=== PATIENT | female | born 1960 | race American Indian/Alaskan Native ===

== ENCOUNTER 2017-06-20 20:09 | Emergency (ER) | payer OTHER ==
[2017-06-20 20:32] VITALS: TEMP 98.1
--- NOTE | 2017-06-20 21:03 | ED PDOC ---
Arrival/HPI - General Historian: Patient EM Caveat: Acuity of Condition - History of Present Illness Time/Duration: Prior to Arrival, 1 hour Symptom Onset: Gradual Symptom Course: Unchanged Quality: Aching Severity Level: 1 Activities at Onset: Rest, Light Context: Standing <Paige Garibay - Last Filed: 06/21/17 00:06> <ErlinPricilla Cartwright - Last Filed: 06/21/17 05:48> - General Chief Complaint: High Blood Pressure Time Seen by Provider: 06/20/17 20:27 - History of Present Illness Narrative History of Present Illness (Text): 06/20/17 21:17 56 years old female with PMH HTN (diagnosed a week ago), 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 Pt went to her [employer] office today, where her SBP was high in 180s. Pt recently was diagnosed with HTN by her PMD Dr Lindsey and started on Losartan-HCTZ 50-12.5 mg since last Tuesday. Pt has been compliant with her medication. She denies any headache, dizziness, vision changes, sob, cough, abdominal pain, diarrhea, constipation, urinary symptoms, weakness. PMD Dr Lindsey (Paige Garibay) Associated Symptoms (Text): 06/20/17 21:24 Denies any headache, dizziness, vision changes, sob, cough, abdominal pain, diarrhea, constipation, urinary symptoms, weakness. (Paige Garibay) Past Medical History - Provider Review Nursing Documentation Reviewed: Yes - Cardiac Hx Hypertension: Yes - Pulmonary Hx Respiratory Disorders: No - Neurological Hx Neurological Disorder: No - HEENT Hx HEENT Disorder: No - Renal Hx Renal Disorder: No - Endocrine/Metabolic Hx Endocrine Disorders: No - Hematological/Oncological Hx Blood Disorders: No - Integumentary Hx Dermatological Disorder: No - Musculoskeletal/Rheumatological Hx Musculoskeletal Disorders: No - Gastrointestinal Hx Gastrointestinal Disorders: No - Genitourinary/Gynecological Hx Genitourinary Disorders: No - Psychiatric Hx Psychophysiologic Disorder: No Hx Substance Use: No <Paige Garibay - Last Filed: 06/21/17 00:06> Family/Social History - Physician Review Nursing Documentation Reviewed: Yes Family/Social History: Hypertension Smoking Status: Never Smoked Hx Alcohol Use: No Hx Substance Use: No <Paige Garibay - Last Filed: 06/21/17 00:06> Allergies/Home Meds <LaniPaige - Last Filed: 06/21/17 00:06> <Pricilla Kern - Last Filed: 06/21/17 05:48> Allergies/Adverse Reactions: Allergies No Known Allergies Allergy (Verified 06/20/17 20:25) Home Medications: Home Meds Medication Instructions Recorded Confirmed Losartan/Hydrochlorothiazide 1 tab PO DAILY 06/20/17 06/20/17 [Losartan-Hctz 50-12.5 mg Tab] Review of Systems - Review of Systems Constitutional: absent: Fatigue, Fevers Eyes: absent: Vision Changes ENT: absent: Hearing Changes, Tinnitus Respiratory: absent: SOB, Cough Cardiovascular: absent: Chest Pain, Palpitations, Edema Gastrointestinal: absent: Abdominal Pain, Constipation, Diarrhea, Nausea, Vomiting Genitourinary Female: absent: Dysuria, Hematuria Musculoskeletal: absent: Back Pain Skin: absent: Rash Neurological: absent: Headache, Dizziness, Focal Weakness Endocrine: absent: Diaphoresis Psychiatric: Anxiety <LaniPaige - Last Filed: 06/21/17 00:06> Physical Exam Vital Signs Reviewed: Yes Temperature: Afebrile Blood Pressure: Hypertensive Pulse: Regular Respiratory Rate: Normal Appearance: Positive for: Non-Toxic, Comfortable Pain Distress: None Mental Status: Positive for: Alert and Oriented X 3 - Systems Exam Head: Present: Atraumatic, Normocephalic Pupils: Present: PERRL Extroacular Muscles: Present: EOMI Conjunctiva: Present: Normal Mouth: Present: Moist Mucous Membranes Pharnyx: No: ERYTHEMA Respiratory/Chest: Present: Clear to Auscultation Cardiovascular: Present: Normal S1, S2, Tachycardic. No: Murmurs Abdomen: Present: Normal Bowel Sounds. No: Tenderness, Distention Upper Extremity: Present: NORMAL PULSES. No: Edema Lower Extremity: No: Edema, CALF TENDERNESS Neurological: Present: GCS=15, Speech Normal Skin: Present: Warm, Dry Psychiatric: Present: Alert, Oriented x 3, Anxious <LaniPaige - Last Filed: 06/21/17 00:06> Vital Signs Temp Pulse Resp BP Pulse Ox 06/20/17 23:41 78 17 159/87 H 100 06/20/17 23:16 62 169/99 H 06/20/17 22:32 95 H 190/111 H 06/20/17 22:00 89 18 196/105 H 99 06/20/17 21:15 94 H 190/109 H 06/20/17 20:26 98.1 F 96 H 16 181/116 H 96 Medical Decision Making <Paige Garibay - Last Filed: 06/21/17 00:06> <Pricilla Kern - Last Filed: 06/21/17 05:48> ED Course and Treatment: 06/20/17 21:14 56 years old female with PMH HTN, presents for asymptomatic high blood pressure: - Lopressor 25 mg PO x1 - Reassess and dispo - F/u with PMD 06/21/17 00:06 Lopressor 5 mg Iv x2 given. BP better controlled. Will discharge on Metoprolol 25 mg PO BID. Pt instructed to take home HTN med Losartan-HCTZ and Metoprolol. Please follow up with PMD within 2-3 days. (Paige Garibay) Patient Seen With Resident: In agreement with resident note. Patient was seen and evaluated with resident, came up with plan and treatment together. A 56 year old female with high blood pressure. Additional HPI as noted by resident. No acute findings on physical exam. Will give patient Lopressor. (Pricilla Kern) - EKG Interpretation EKG Interpretation (Text): 06/20/17 21:45 EKG HR 86.; SR (Paige Garibay) - Medication Orders Current Medication Orders: Discontinued Medications Metoprolol Tartrate (Lopressor) 25 mg PO STAT STA Stop: 06/20/17 21:00 Last Admin: 06/20/17 21:15 Dose: 25 mg MAR Pulse and Blood Pressure Document 06/20/17 21:15 RD (Rec: 06/20/17 21:15 RD [id number]) Pulse Pulse Rate (60-90) 94 Blood Pressure Blood Pressure (100/60-150/90) 190/109 Metoprolol Tartrate (Lopressor) 5 mg IVP STAT STA Stop: 06/20/17 22:04 Last Admin: 06/20/17 22:32 Dose: 5 mg IVP Administration Document 06/20/17 22:32 RD (Rec: 06/20/17 22:32 RD [id number]) Charges for Administration # of IVP Administrations 1 OCT Pulse and Blood Pressure Document 06/20/17 22:32 RD (Rec: 06/20/17 22:32 RD [id number]) Pulse Pulse Rate (60-90) 95 Blood Pressure Blood Pressure (100/60-150/90) 190/111 Metoprolol Tartrate (Lopressor) 5 mg IVP STAT STA Stop: 06/20/17 22:55 Last Admin: 06/20/17 23:16 Dose: 5 mg IVP Administration Document 06/20/17 23:16 RD (Rec: 06/20/17 23:17 RD [id number]) Charges for Administration # of IVP Administrations 1 OCT Pulse and Blood Pressure Document 06/20/17 23:16 RD (Rec: 06/20/17 23:17 RD [id number]) Pulse Pulse Rate (60-90) 62 Blood Pressure Blood Pressure (100/60-150/90) 169/99 - PA / BODY AND FRAME MAN / Resident Statement MD/DO has reviewed & agrees with the documentation as recorded. MD/DO has examined the patient and agrees with the treatment plan. <Paige Garibay - Last Filed: 06/21/17 00:06> - Scribe Statement The provider has reviewed the documentation as recorded by the Scribe <Pricilla Kern - Last Filed: 06/21/17 05:48> - Scribe Statement Jefferson Loco All medical record entries made by the Scribe were at my direction and personally dictated by me. I have reviewed the chart and agree that the record accurately reflects my personal performance of the history, physical exam, medical decision making, and the department course for this patient. I have also personally directed, reviewed, and agree with the discharge instructions and disposition. (Pricilla Kern) Disposition/Present on Arrival - Present on Arrival Any Indicators Present on Arrival: No History of DVT/PE: No History of Uncontrolled Diabetes: No Urinary Catheter: No History of Decub. Ulcer: No History Surgical Site Infection Following: None - Disposition Have Diagnosis and Disposition been Completed?: Yes Patient Plan: Discharge <Paige Garibay - Last Filed: 06/21/17 00:06> - Disposition Have Diagnosis and Disposition been Completed?: Yes Disposition Time: 23:21 Patient Plan: Discharge <Pricilla Kern - Last Filed: 06/21/17 05:48> - Disposition Diagnosis: Hypertension Disposition: HOME/ ROUTINE Condition: FAIR Discharge Instructions (ExitCare): Hypertension (ED) Additional Instructions: - Please take Metoprolol 25 mg PO BID and losartan-hctz for HTN. - Please follow up with PMD within 2-3 days. - Return to the ER for any concerns. Prescriptions: Metoprolol Tartrate [Lopressor] 25 mg PO BID #20 tab Referrals: Coy Lindsey DO [Primary Care Provider] - Follow up with primary Forms: [employer] (Bulgarian)
[2017-06-20] MEDS ORDERED: Metoprolol 1 mg/ml Inj IVP STA ×2 (22:03→22:54)
[2017-06-20 23:43] VITALS: BP 159/87; PULSE 78; RESP 17; O2SAT 100
--- NOTE | 2017-06-21 22:23 | CARD ---
APPROVED REPORT EKG Measurement Heart [id number] <Conclusion> Sinus rhythm with marked sinus arrhythmia Otherwise normal ECG
== END 2017-06-20 23:41 | disposition home or self-care (01) ==
LOC: ED 20:09
DX: I10 Essential (primary) hypertension (principal); Z82.49 Family history of ischemic heart disease and other diseases of the circulatory system

== ENCOUNTER 2018-10-10 10:18 | Emergency (ER) | payer OTHER ==
[2018-10-10 10:25] VITALS: O2SAT 97
--- NOTE | 2018-10-10 11:03 | ED PDOC ---
Arrival/HPI - General Chief Complaint: Lower Extremity Problem/Injury Time Seen by Provider: 10/10/18 10:29 Historian: Patient - History of Present Illness Narrative History of Present Illness (Text): 10/10/18 11:02 58 year old female, whose past medical history includes hypertension, presents to the emergency department complaining of pain to her right leg, hip, arm, and shoulder s/p fall. Patient states she slipped on ice this morning and fell on her right side. She denies fevers, chills, headache, dizziness, chest pain, shortness of breath, dyspnea on exertion, cough, abdominal pain, nausea, vomiting, diarrhea, neck pain, or any other complaint. Time/Duration: Prior to Arrival Symptom Onset: Gradual Symptom Course: Unchanged Activities at Onset: Light Context: Slipped Past Medical History - Provider Review Nursing Documentation Reviewed: Yes - Cardiac Hx Cardiac Disorders: Yes Hx Hypertension: Yes - Pulmonary Hx Respiratory Disorders: No - Neurological Hx Neurological Disorder: No - HEENT Hx HEENT Disorder: No - Renal Hx Renal Disorder: No - Endocrine/Metabolic Hx Endocrine Disorders: No - Hematological/Oncological Hx Blood Disorders: No - Integumentary Hx Dermatological Disorder: No - Musculoskeletal/Rheumatological Hx Musculoskeletal Disorders: No - Gastrointestinal Hx Gastrointestinal Disorders: No - Genitourinary/Gynecological Hx Genitourinary Disorders: No - Psychiatric Hx Psychophysiologic Disorder: No Hx Substance Use: No Family/Social History - Physician Review Nursing Documentation Reviewed: Yes Family/Social History: No Known Family HX Smoking Status: Never Smoked Hx Alcohol Use: No Hx Substance Use: No Allergies/Home Meds Allergies/Adverse Reactions: Allergies No Known Allergies Allergy (Verified 10/10/18 10:20) Home Medications: Home Meds Medication Instructions Recorded Confirmed Losartan/Hydrochlorothiazide 1 tab PO DAILY 06/20/17 10/10/18 [Losartan-Hctz 50-12.5 mg Tab] Metoprolol Tartrate [Lopressor] 50 mg PO BID 10/10/18 10/10/18 Review of Systems - Physician Review All systems were reviewed & negative as marked: Yes - Review of Systems Constitutional: absent: Fevers Cardiovascular: absent: Chest Pain Physical Exam - Physical Exam Narrative Physical Exam (Text): 10/10/18 11:02 Constitutional: No acute distress. Head: Normocephalic. Atraumatic. Eyes: PERRL. ENT: Moist mucous membranes. Neck: Supple. Cardiovascular: Regular rate. Chest: No tenderness. Respiratory: Clear to auscultation bilaterally. GI: Soft. Nontender. Nondistended. Back: No CVA tenderness. Musculoskeletal: tenderness to posterior shoulder, tenderness to the right hip, no tenderness to the knee, full ROM of right knee, full ROM of elbow and wrist, no tenderness to clavicle or AC joint, Skin: No rash. Neurologic: Alert, no focal deficit. Vital Signs Reviewed: Yes Vital Signs Temp Pulse Resp BP Pulse Ox 10/10/18 10:21 98.3 F 94 H 16 153/95 H 97 10/10/18 10:18 98.3 F 94 H 16 153/95 H 97 Temperature: Afebrile Blood Pressure: Hypertensive Pulse: Tachycardic Respiratory Rate: Normal Appearance: Positive for: Well-Appearing, Non-Toxic, Comfortable Pain Distress: None Mental Status: Positive for: Alert and Oriented X 3 Medical Decision Making ED Course and Treatment: 10/10/18 11:02 Impression: 58 year old female who presents to the emergency department complaining of pain to right shoulder, arm, hip, and leg. Plan: -- Motrin -- Right hip X-ray -- Right shoulder X-ray -- Reassess and disposition Progress Notes: 10/10/18 12:14 Right hip X-ray reviewed by radiologist, shows: IMPRESSION: Normal radiographs of right hip. Right shoulder X-ray reviewed by radiologist, shows: IMPRESSION: Minimal acromioclavicular degenerative arthritis. Otherwise unremarkable examination. Patient in no distress. Discharged home, follow up pmd, return to emergency department for worsening pain, vomiting, lethargy, abdominal pain, or any other problem. - RAD Interpretation Radiology Orders: 10/10/18 11:01 HIP MIN 2V W/ PELVIS RT [RAD] Stat SHOULDER RIGHT [RAD] Stat Spinner Continuous: Radiologist - Scribe Statement The provider has reviewed the documentation as recorded by the Yaneth Rosales Provider Scribe Attestation: All medical record entries made by the Scribe were at my direction and personal ly dictated by me. I have reviewed the chart and agree that the record accurately reflects my personal performance of the history, physical exam, medical decision making, and the department course for this patient. I have also personally directed, reviewed, and agree with the discharge instructions and disposition. Disposition/Present on Arrival - Present on Arrival Any Indicators Present on Arrival: No History of DVT/PE: No History of Uncontrolled Diabetes: No Urinary Catheter: No History of Decub. Ulcer: No History Surgical Site Infection Following: None - Disposition Have Diagnosis and Disposition been Completed?: Yes Diagnosis: Shoulder pain, Hip pain Disposition: HOME/ ROUTINE Disposition Time: 12:36 Patient Plan: Discharge Condition: STABLE Discharge Instructions (ExitCare): Shoulder Pain (DC), Hip Pain (DC) Prescriptions: Acetaminophen [Tylenol 325mg tab] 2 tab PO Q4H #30 tab Ibuprofen [Motrin] 600 mg PO Q6 #25 tab Forms: [employer] (Welsh)
--- NOTE | 2018-10-10 11:54 | RAD ---
Date of service: 10/10/2018 PROCEDURE: Radiographs of the Right Shoulder HISTORY: fall, shoulder pain COMPARISON: No prior. FINDINGS: BONES: Normal. No fracture. JOINTS: Unremarkable glenohumeral articulation. Minimal acromioclavicular degenerative arthritis. SOFT TISSUES: Normal. OTHER FINDINGS: None. IMPRESSION: Minimal acromioclavicular degenerative arthritis. Otherwise unremarkable examination.
--- NOTE | 2018-10-10 12:03 | RAD ---
PROCEDURE: Right Hip Radiographs. HISTORY: hip pain, fall COMPARISON: None. FINDINGS: BONES: Normal. No fracture. JOINTS: Normal. SOFT TISSUES: Normal. OTHER FINDINGS: None. IMPRESSION: Normal radiographs of right hip.
[2018-10-10 12:54] VITALS: BP 134/79; PULSE 84; RESP 18; TEMP 98
== END 2018-10-10 12:46 | disposition home or self-care (01) ==
LOC: ED 10:18
DX: M25.511 Pain in right shoulder (principal); M25.551 Pain in right hip; I10 Essential (primary) hypertension

== ENCOUNTER 2018-12-10 23:22 | Observation (INO) | payer OTHER ==
--- NOTE | 2018-12-11 00:27 | ED PDOC ---
Arrival/HPI - General Historian: Patient - History of Present Illness Narrative History of Present Illness (Text): 12/11/18 00:24 58yr old female with a hx of HTN presents today with sudden onset of mid left sided back pain. pt states she has been having chest pain, and back pain and about 1 hour prior to arrival she developed severe back pain associated with slight chest pain. no shortness of breath. no numbness, weakness, tingling in the extremities. no dizziness. no headache. pt states she has hx of htn and her blood pressure was high today despite taking her bp mediations. pt states after the pain started she took an advil with slight improvement in the pain. no urina ry symptoms. pt states PMD is dr. Rowley. no abdominal pain. no vomiting/diarrhea. no other complaints. <Phuong Minaya - Last Filed: 12/11/18 01:39> <Berto Gutiérrez - Last Filed: 12/11/18 06:15> - General Chief Complaint: Back Pain Time Seen by Provider: 12/10/18 23:23 Past Medical History - Provider Review Nursing Documentation Reviewed: Yes - Travel History Have you recently traveled outside [place] w/in the past 3 mons?: No - Cardiac Hx Cardiac Disorders: Yes Hx Hypertension: Yes - Pulmonary Hx Respiratory Disorders: No - Neurological Hx Neurological Disorder: No - HEENT Hx HEENT Disorder: No - Renal Hx Renal Disorder: No - Endocrine/Metabolic Hx Endocrine Disorders: No - Hematological/Oncological Hx Blood Disorders: No - Integumentary Hx Dermatological Disorder: No - Musculoskeletal/Rheumatological Hx Musculoskeletal Disorders: No - Gastrointestinal Hx Gastrointestinal Disorders: No - Genitourinary/Gynecological Hx Genitourinary Disorders: No - Psychiatric Hx Psychophysiologic Disorder: No Hx Substance Use: No <Phuong Minaya - Last Filed: 12/11/18 01:39> Family/Social History - Physician Review Nursing Documentation Reviewed: Yes Family/Social History: Unknown Family HX Smoking Status: Never Smoked Hx Alcohol Use: No Hx Substance Use: No <Phuong Minaya - Last Filed: 12/11/18 01:39> Allergies/Home Meds <Phuong Minaya - Last Filed: 12/11/18 01:39> <Berto Gutiérrez - Last Filed: 12/11/18 06:15> Allergies/Adverse Reactions: Allergies No Known Allergies Allergy (Verified 10/10/18 10:20) Home Medications: Home Meds Medication Instructions Recorded Confirmed Losartan/Hydrochlorothiazide 1 tab PO DAILY 06/20/17 12/11/18 [Losartan-Hctz 50-12.5 mg Tab] Metoprolol Tartrate [Lopressor] 50 mg PO BID 10/10/18 12/11/18 Review of Systems - Review of Systems Constitutional: absent: Fatigue, Fevers Respiratory: absent: SOB, Cough Cardiovascular: Chest Pain, Palpitations Gastrointestinal: absent: Abdominal Pain, Constipation, Diarrhea, Nausea, Vomiting Genitourinary Female: absent: Dysuria, Frequency, Hematuria Musculoskeletal: Arthralgias (right arm pain), Back Pain. absent: Neck Pain Skin: absent: Rash, Pruritis Neurological: absent: Headache, Dizziness Psychiatric: absent: Anxiety, Depression <Phuong Minaya T - Last Filed: 12/11/18 01:39> Physical Exam Vital Signs Reviewed: Yes Vital Signs Temp Pulse Resp BP Pulse Ox 12/10/18 23:42 98.2 F 91 H 22 201/115 H 98 Temperature: Afebrile Blood Pressure: Hypertensive Pulse: Regular Respiratory Rate: Normal Appearance: Positive for: Well-Appearing, Non-Toxic, Comfortable Pain Distress: None Mental Status: Positive for: Alert and Oriented X 3 - Systems Exam Head: Present: Atraumatic Mouth: Present: Moist Mucous Membranes Neck: Present: Normal Range of Motion Respiratory/Chest: Present: Clear to Auscultation, Good Air Exchange. No: Respiratory Distress, Accessory Muscle Use Cardiovascular: Present: Regular Rate and Rhythm, Normal S1, S2. No: Murmurs Abdomen: No: Tenderness, Distention, Peritoneal Signs, Rebound, Guarding Back: Present: Normal Inspection. No: CVA Tenderness, Midline Tenderness, Paraspinal Tenderness Upper Extremity: Present: Normal ROM Lower Extremity: Present: Edema, Normal ROM Neurological: Present: GCS=15, Speech Normal Skin: Present: Warm, Dry, Normal Color. No: Rashes Psychiatric: Present: Alert, Oriented x 3 <Phuong Minaya T - Last Filed: 12/11/18 01:39> Vital Signs Temp Pulse Resp BP Pulse Ox 12/11/18 03:22 97.7 F 89 19 154/93 H 98 12/11/18 02:31 89 18 137/87 95 12/11/18 00:26 91 H 180/118 H 12/10/18 23:42 98.2 F 91 H 22 201/115 H 98 <Berto Gutiérrez - Last Filed: 12/11/18 06:15> Medical Decision Making ED Course and Treatment: 12/11/18 00:28 Pt with back pain and chest pain; patient with a history of hypertension. Hypertensive on initial vitals. pt given hydralazine for hypertension. cbc; wnl cmp; wnl trop: wnl Bnp; wnl ekg; normal sinus rhythm at 88 bpm normal axis no ST elevations QTC 450 cxr: wnl asa po pt reassessment; pt resting comfortably in er. case discussed with Dr. Rowley; accepts admission. will Admit observational status to Tele for chest pain, back pain r/o acs. Consult dr. hanna. CT Dissection protocol; PENDING All aspects of this case were discussed the attending of record. impression; chest pain, back pain Admit observational status to tele 12/11/18 01:39 case signed out to dr. gutiérrez pending CT results. Reassessment Condition: Re-examined, Improved - RAD Interpretation Radiology Orders: 12/10/18 23:55 CHEST PORTABLE [RAD] Stat 12/10/18 23:56 ANGIOGRAPHY DISECTION PROTOCOL [CT] Stat - Medication Orders Current Medication Orders: Discontinued Medications Hydralazine HCl (Apresoline) 10 mg IVP STAT STA Stop: 12/11/18 00:16 <Phuong Minaya - Last Filed: 12/11/18 01:39> - Lab Interpretations Lab Results: PT 12.6 SECONDS (9.4-12.5) H 12/11/18 00:05 INR 1.14 12/11/18 00:05 APTT 31.8 Seconds (26.9-38.3) 12/11/18 00:05 Troponin I < 0.01 ng/mL 12/11/18 00:05 NT-Pro-B Natriuret Pep 21.3 pg/mL (0-450) 12/11/18 00:05 Total Bilirubin 0.3 mg/dL (0.2-1.3) 12/11/18 00:05 AST 24 U/L (14-36) 12/11/18 00:05 ALT 19 U/L (7-56) 12/11/18 00:05 Alkaline Phosphatase 148 U/L (38-126) H 12/11/18 00:05 Total Protein 7.8 g/dL (5.8-8.3) 12/11/18 00:05 Albumin 4.5 g/dL (3.0-4.8) 12/11/18 00:05 Globulin 3.3 gm/dL 12/11/18 00:05 Albumin/Globulin Ratio 1.4 (1.1-1.8) 12/11/18 00:05 - RAD Interpretation Narrative RAD Interpretations (Text): CT Chest, Abdomen, and Pelvis: Normal enhancement of the main pulmonary artery and right and left pulmonary arteries. Normal enhancement of the bilateral peripheral pulmonary arteries. There is no demonstrated pulmonary embolism. Normal thoracic aorta and visualized great vessels. There is no demonstrated aortic dissection. Normal heart and pericardium. Normal mediastinum. Normal hilar regions. Normal visualized trachea and bronchi. The lungs are well expanded. Normal pulmonary parenchyma. Normal pleura. Normal chest wall structures. Normal osseous structures. Normal liver. Normal gallbladder and extrahepatic biliary system. Normal spleen. Normal pancreas. Normal bilateral adrenal glands. Normal size of the right kidney. There is no right renal mass. There are no right renal calculi. There is no right hydronephrosis. Normal visualized right ureter. Normal size of the left kidney. There is no left renal mass. There are no left renal calculi. There is no left hydronephrosis. Normal visualized left ureter. Normal visualized stomach. Normal small intestine. Uncomplicated diverticulosis with moderate amount of fecal residue in the colon. The appendix is visualized and appears normal. There is no demonstrated peritoneal fluid. Normal abdominal aorta. Normal inferior vena cava. Normal retroperitoneum. Normal urinary bladder. There is no pelvic mass lesion or lymphadenopathy. There is no pelvic fluid. Normal abdominal wall. Normal osseous structures. IMPRESSION: No demonstrated pulmonary embolism or arterial dissection. Constipation. Electronically signed on December 11, 2018 3:16:21 AM EDT by: Mariah Moran M.D., Certified by ABR, MSK, Neuroradiology Radiology Orders: 12/10/18 23:55 CHEST PORTABLE [RAD] Stat 12/10/18 23:56 ANGIOGRAPHY DISECTION PROTOCOL [CT] Stat Patient Carrier: Radiologist - Medication Orders Current Medication Orders: Discontinued Medications Aspirin (Aspirin) 325 mg PO STAT STA Stop: 12/11/18 01:37 Last Admin: 12/11/18 02:28 Dose: 325 mg Hydralazine HCl (Apresoline) 10 mg IVP STAT STA Stop: 12/11/18 00:16 Last Admin: 12/11/18 00:26 Dose: 10 mg IVP Administration Document 12/11/18 00:26 HB (Rec: 12/11/18 00:29 [id number] Charges for Administration # of IVP Administrations 1 MAR Pulse and Blood Pressure Document 12/11/18 00:26 HB (Rec: 12/11/18 00:29 HB [id number]) Pulse Pulse Rate (60-90 beats/min) 91 Blood Pressure Blood Pressure (100/60-150/90 mm Hg) 180/118 <Berto Gutiérrez - Last Filed: 12/11/18 06:15> - PA / WEAVING PROFESSOR / Resident Statement ALIYA has reviewed & agrees with the documentation as recorded. ALIYA has examined the patient and agrees with the treatment plan. <Berto Gutiérrez - Last Filed: 12/11/18 06:15> Disposition/Present on Arrival - Present on Arrival Any Indicators Present on Arrival: No History of DVT/PE: No History of Uncontrolled Diabetes: No Urinary Catheter: No History of Decub. Ulcer: No History Surgical Site Infection Following: None - Disposition Have Diagnosis and Disposition been Completed?: Yes Disposition Time: 01:00 Patient Plan: Observation <Phuong Minaya - Last Filed: 12/11/18 01:39> <Berto Gutiérrez - Last Filed: 12/11/18 06:15> - Disposition Diagnosis: Chest pain, Back pain, Hypertension Disposition: HOSPITALIZED Patient Problems: Current Active Problems Problem Status Onset Back pain Acute Chest pain Acute Hypertension Acute Condition: FAIR
[2018-12-11 01:03] LABS: BASO # 0.02 K/mm3 (0.0-2.0); BASO % 0.2 % (0.0-3.0); EOS # 0.3 (0.0-0.7); EOS % 2.6 % (1.5-5.0); HEMOGLOBIN 13.4 g/dL (12.0-16.0); LYMPH # 3.8 (1.2-3.4); LYMPH % 39.1 % (22.0-35.0); MEAN CELL VOLUME 88.7 fl (80.0-105.0); MEAN CORPUSCULAR HEMOGLOBIN 29.8 pg (25.0-35.0); MEAN CORPUSCULAR HGB CONC 33.6 g/dl (31.0-37.0); MEAN PLATELET VOLUME 10.5 fl (7.0-11.0); MONO # 0.8 (0.1-0.6); MONO % 8.2 % (1.0-6.0); RBC 4.5 10^6/uL (3.5-6.1); RED CELL DISTRIBUTION WIDTH 13.5 % (11.5-14.5); WHITE BLOOD COUNT 9.7 10^3/uL (4.5-11.0)
[2018-12-11 01:12] LABS: ALB/GLOB RATIO 1.4 (1.1-1.8); ALBUMIN 4.5 g/dL (3.0-4.8); ALT/SGPT 19 U/L (7-56); AST/SGOT 24 U/L (14-36); BLOOD UREA NITROGEN 16 mg/dL (7-21); CALCIUM 9.6 mg/dL (8.4-10.5); GFR NON-AFRICAN AMERICAN 57; INR 1.14; PARTIAL THROMBOPLASTIN TIME 31.8 Seconds (26.9-38.3); PROTHROMBIN TIME 12.6 SECONDS (9.4-12.5)
[2018-12-11 01:23] LABS: B-TYPE NATRIURETIC PEPTIDE 21.3 pg/mL (0-450); TROPONIN I < 0.01 ng/mL
[2018-12-11 03:35] VITALS: BMI 34.9
[2018-12-11 07:32] LABS: PH,URINE 6.5 (4.7-8.0); URINE BILIRUBIN NEGATIVE (NEGATIVE); URINE BLOOD LARGE (NEGATIVE); URINE GLUCOSE (UA) NEGATIVE (NEGATIVE); URINE LEUKOCYTE ESTERASE NEGATIVE Leu/uL (NEGATIVE); URINE PROTEIN TRACE mg/dL (<30 mg/dL)
[2018-12-11 07:40] LABS: URINE APPEARANCE CLEAR (CLEAR); URINE COLOR YELLOW (YELLOW)
[2018-12-11 07:50] LABS: URINE RBC TNTC /hpf (0-2)
[2018-12-11 07:51] LABS: URINE AMORPHOUS SEDIMENT FEW /hpf; URINE BACTERIA MOD /hpf
--- NOTE | 2018-12-11 09:05 | RAD ---
Date of service: 12/11/2018 HISTORY: CP/back pain COMPARISON: No prior. TECHNIQUE: 1 view obtained. FINDINGS: LUNGS: No active pulmonary disease. PLEURA: No significant pleural effusion identified, no pneumothorax apparent. CARDIOVASCULAR: No aortic atherosclerotic calcification present. Normal cardiac size. No pulmonary vascular congestion. OSSEOUS STRUCTURES: No significant abnormalities. VISUALIZED UPPER ABDOMEN: Normal. OTHER FINDINGS: None. IMPRESSION: No active disease.
[2018-12-11] MEDS ORDERED: Non Formulary Medication (Losartan/Hydrochlorothiazide [Losartan-Hctz 50-12.5 Mg Tab] 1 TA PO SCH (10:00)
--- NOTE | 2018-12-11 11:09 | CT ---
PROCEDURE: CT Angiography Chest, Abdomen and Pelvis with and without intravenous contrast HISTORY: back pain/chest pain COMPARISON: None. TECHNIQUE: Contiguous axial images of the chest, abdomen and pelvis were obtained in the phase of aortic enhancement. A noncontrast enhanced CT of the chest was also obtained to evaluate for possible intramural thrombus. Coronal and sagittal reformats were generated. IV dose administered: 150 mL Omnipaque 350 Radiation dose: Total exam DLP = 973.26 mGy-cm. This CT exam was performed using one or more of the following dose reduction techniques: Automated exposure control, adjustment of the mA and/or kV according to patient size, and/or use of iterative reconstruction technique. FINDINGS: CT ANGIOGRAPHY OF THE CHEST WITH & WITHOUT CONTRAST: AORTA (CHEST AND ABDOMEN): The thoracic and abdominal aorta are unremarkable, without aneurysm, dissection or rupture. No intramural thrombus identified in the thoracic aorta on the non-contrast ct of the chest. The celiac axis, superior mesenteric artery, inferior mesenteric artery and the renal arteries are widely patent. The pelvic arteries are unremarkable. LUNGS: Clear. No nodule, mass or consolidation. MEDIASTINUM: Unremarkable. Normal caliber aorta and pulmonary arterial trunk. No aortic dissection. Normal size heart. LYMPH NODES: Unremarkable. PLEURA: Unremarkable. No pneumothorax. No pleural fluid. BONES: Unremarkable. OTHER FINDINGS: None. CT ANGIOGRAPHY OF THE ABDOMEN AND PELVIS WITH CONTRAST: LIVER: Unremarkable. No gross lesion or ductal dilatation. GALLBLADDER AND BILE DUCTS: Unremarkable. PANCREAS: Unremarkable. No gross lesion or ductal dilatation. SPLEEN: Unremarkable. ADRENALS: Unremarkable. No mass. KIDNEYS AND URETERS: Unremarkable. No hydronephrosis. No solid mass. VASCULATURE: Unremarkable. No aortic aneurysm. No aortic atherosclerotic calcification or mural plaque present. STOMACH AND BOWEL: Unremarkable. No obstruction. No gross mural thickening. APPENDIX: Normal appendix. PERITONEUM: Unremarkable. No free fluid. No free air. LYMPH NODES: Unremarkable. No enlarged lymph nodes. BLADDER: Unremarkable. REPRODUCTIVE: Unremarkable. BONES: No acute fracture. OTHER FINDINGS: None. IMPRESSION: No evidence of thoracic or abdominal aortic aneurysm or dissection. Unremarkable examination. The preliminary findings for this examination were reported by [facility] Radiology at 3:16 a.m. on 12/11/2018. There is concurrence of this report with the preliminary findings.
--- NOTE | 2018-12-11 11:09 | CARD ---
APPROVED REPORT Date of service: 12/11/2018 EKG Measurement Heart [id number] <Conclusion> Normal sinus rhythm Normal ECG
--- NOTE | 2018-12-11 15:15 | US ---
Date of service: 12/11/2018 HISTORY: hematuria COMPARISON: None. TECHNIQUE: Sonographic evaluation of the abdomen. FINDINGS: LIVER: Measures 14.3 cm. Normal echogenicity of the liver parenchyma. No mass. No intrahepatic bile duct dilatation. GALLBLADDER: Unremarkable. No gallstones. COMMON BILE DUCT: Measures 4 mm. No stones. No dilatation. PANCREAS: Unremarkable as visualized. No mass. No ductal dilatation. RIGHT KIDNEY: Measures 11.2cm. Normal echogenicity. There are 2 nonobstructing calculi measuring approximately 4-5 mm each. There is no hydronephrosis. There is no renal mass. LEFT KIDNEY: Measures cm. Normal echogenicity. No calculus, mass or hydronephrosis. SPLEEN: Normal in size and contour. No mass. AORTA: No aneurysmal dilatation. IVC: Unremarkable. OTHER FINDINGS: None. IMPRESSION: Two nonobstructing right renal calculi. Otherwise unremarkable.
--- NOTE | 2018-12-11 20:14 | HP ---
DATE OF EXAM: 12/11/2018 HISTORY OF PRESENT ILLNESS: A 50-year-old black female with history of hypertension in the past, history of renal stone several years ago. The patient came to the emergency room complaining of back pain. Denies chest pain, palpitation, or shortness of breath. The patient denies any dysuria, hematuria, frequency or urgency and denies any fevers or chills. The back pain radiated somewhat to the right side. REVIEW OF SYSTEMS Neurological: Negative for headache, syncope, loss of strength or sensation in upper and lower extremities. Respiratory: Negative for shortness of breath, cough, or sputum production. Cardiac: Negative for palpitations, shortness of breath, diaphoresis, nausea or vomiting. Gastrointestinal: Negative for nausea, vomiting or diarrhea. Genitourinary: Positive only for back pain. PHYSICAL EXAMINATION VITALS SIGNS: Stable. Temperature 97.8, blood pressure 132/72. GENERAL: This is well developed slightly obese black female with a long history of hypertension in no apparent distress the following morning. HEENT: Essentially within normal limits. HEART: Regular sinus rhythm. No S3, S4 or murmurs. The carotids are without bruits. ABDOMEN: Obese, but benign. No hepatosplenomegaly. Bowel sounds are normoactive EXTREMITIES: Without cyanosis, clubbing or edema. NEUROLOGICAL: Sensation grossly intact. There is no CVA tenderness. LABORATORY DATA: Show marked hematuria, negative initial troponins, repeat pending. The rest of the laboratory data are unremarkable. IMPRESSION: Hematuria, possible renal colic, and history of hypertension. Dariusz Rowley MD
--- NOTE | 2018-12-12 00:49 | CON ---
DATE: 12/11/2018 CONSULT SERVICE: CARDIOLOGY. REASON FOR CONSULTATION AND FOLLOWUP: Cardiac evaluation, admitted with chest pain. BRIEF CLINICAL HISTORY: This is a 58-year-old female with past medical history of severe hypertension, admitted with acute onset of left-sided chest pain. Patient underwent CAT scan of the chest, per PE protocol is negative. Complains of sudden onset of chest pain 1 hour prior to admission. Denies any prior history of chest pain, dyspnea on exertion, chest pain on exertion. PAST MEDICAL HISTORY: Significant for hypertension. SOCIAL HISTORY: Denies any history of alcohol abuse. CURRENT MEDICATIONS: Patient is taking at home metoprolol tartrate 25 mg twice a day, ibuprofen 600 mg daily, losartan one tab and hydrochlorothiazide 50/12.5 mg once a day. REVIEW OF SYSTEMS: Negative except HPI. PHYSICAL EXAMINATION GENERAL: Height of the patient 4 feet 11 inches, weight of the patient 175 pounds, and body mass index 35.5 kg/m2. VITAL SIGNS: Temperature afebrile, heart rate 72, and blood pressure 152/80. HEENT: PERRLA. Extraocular muscles intact. NECK: Supple. No carotid bruits or thyromegaly. CHEST: Clear to auscultation. HEART: S1 and S2 regular. ABDOMEN: Soft. EXTREMITIES: Clubbing and cyanosis, negative. LABORATORY DATA: Blood work up as follows. WBC 9.0, hemoglobin 13.1, hematocrit 39.9, and platelet count 406. Chemistry shows sodium 140, potassium 3.9, chloride 107, carbon dioxide 24, anion gap of 14, BUN 16, and creatinine 1.0. Troponin 0.01 negative. EKG showed normal sinus rhythm with acute ST-T changes noted. IMPRESSION: A 58-year-old female with no significant past medical except hypertension admitted with acute onset of chest pain. So far, CAT scan is negative for acute pulmonary embolism. Troponin is negative. Rule out angina. Rule out acute coronary syndrome. RECOMMENDATIONS: We will follow serial CPK troponin at 3 p.m. and if it remains negative, we will consider echo, stress test, lipid profile, as well as hemoglobin A1c. Further recommendation depending on the hospital course. We will follow with you. Thank you for providing us the opportunity in taking care of the patient, Melissa Fisher. Carol Garner MD
[2018-12-12 06:00] VITALS: O2SAT 96
[2018-12-12 07:29] LABS: BASO # 0.01 K/mm3 (0.0-2.0); BASO % 0.2 % (0.0-3.0); EOS # 0.3 (0.0-0.7); EOS % 4.7 % (1.5-5.0); HEMOGLOBIN 13.4 g/dL (12.0-16.0); LYMPH # 2.5 (1.2-3.4); MEAN CELL VOLUME 88.7 fl (80.0-105.0); MEAN CORPUSCULAR HEMOGLOBIN 29.7 pg (25.0-35.0); MEAN CORPUSCULAR HGB CONC 33.5 g/dl (31.0-37.0); MEAN PLATELET VOLUME 10.3 fl (7.0-11.0); MONO # 0.7 (0.1-0.6); MONO % 10.2 % (1.0-6.0); RBC 4.51 10^6/uL (3.5-6.1); RED CELL DISTRIBUTION WIDTH 13.8 % (11.5-14.5); WHITE BLOOD COUNT 6.7 10^3/uL (4.5-11.0)
[2018-12-12 07:45] LABS: ALB/GLOB RATIO 1.2 (1.1-1.8); ALBUMIN 4.4 g/dL (3.0-4.8); ALT/SGPT 13 U/L (7-56); AST/SGOT 22 U/L (14-36); BLOOD UREA NITROGEN 15 mg/dL (7-21); CALCIUM 9.7 mg/dL (8.4-10.5); GFR NON-AFRICAN AMERICAN > 60; HDL CHOLESTEROL 45 mg/dL (29-60)
[2018-12-12 07:51] LABS: LDL CHOLESTEROL 162 mg/dL (0-129)
--- NOTE | 2018-12-12 10:20 | PN ---
DATE: 12/12/2018 SUBJECTIVE: A 58-year-old black female admitted to the hospital with back pain, chest pain, and hematuria. The patient is seeing Dr. Garner. The patient is here for a stress test today. We will discharge home, if negative. Ultrasound of the kidney shows two non-obstructing stones. We will repeat a urinalysis and culture and a urine per Cytology. The patient is stable. Vital signs are stable. is unchanged. The patient has no chest pain today and back pain has diminished. Dariusz Rowley MD
--- NOTE | 2018-12-12 16:07 | PN ---
DATE: 12/12/2018 REASON FOR CONSULTATION AND FOLLOWUP: Cardiac evaluation, admitted with chest pain, n.p.o. for stress test today. SUBJECTIVE: The patient denies any chest pain, shortness of breath or any palpitation. The patient not in apparent distress. PHYSICAL EXAMINATION: VITAL SIGNS: Temperature afebrile, heart rate 80, blood pressure 114/77. HEENT: PERRLA. Extraocular muscles intact. NECK: Supple. No carotid bruits or thyromegaly. CHEST: Clear to auscultation. HEART: S1, S2. Regular. ABDOMEN: Soft. EXTREMITIES: Clubbing, cyanosis negative. LABORATORY DATA: WBC 6.7, hemoglobin 13.8, hematocrit 40, platelet count 376. Chemistry shows sodium 140, potassium 4, chloride 104, carbon dioxide 27, anion gap of 15, BUN 15, creatinine 0.9. Hemoglobin A1c is 5.8. Total protein 8.41, albumin 4.4,globulin 3, albumin globulin ratio 1.2. IMPRESSION: A 58-year-old female with past medical history of hypertension, admitted with chest pain. So far, troponin is negative. No evidence of acute myocardial infarction. The patient is scheduled for a stress test and echo today. CT scan was negative for acute pulmonary embolism. RECOMMENDATIONS: Further recommendation depending on the hospital course. We will follow with you. The patient has elevated LDL 162, total cholesterol 164. TSH 3.75. Hemoglobin A1c 5.8. We will start 40 of atorvastatin. Further recommendation after stress test. We will follow with you. Thank you for providing us the opportunity in taking care of the patient, Melissa Fisher. Carol Garner MD
[2018-12-12 17:25] VITALS: BP 126/84; PULSE 75
[2018-12-12 18:25] VITALS: RESP 18; TEMP 97.8
--- NOTE | 2018-12-12 22:42 | CARD ---
APPROVED REPORT Date of service: 12/12/2018 Protocol: MESSI Test Type: Sestamibi Stress Test Attending Physician: Dr. Garner Referring Physician: Dr. Dariusz Rowley Test Indications: Chest Pain Height:4 ft 11 in Weight:175lbs Medications: Aspirin,Microzide, Cozaar, Lopressor Medical History: 58 y/o female. Hx of hypertension. Target HR: 162 bpm Resting ECG: normal Resting Heart Rate: 115 bpm Resting Blood Pressure: 110/60mmHg Submaximum (85%): 138 bpm POST EXERCISE Reason for Termination: Fatigue Target HR: Yes Max HR: 164 bpm 101% of Maximum Predicted HR: 162 bpm Exercise duration: 05:30 min:sec, 2 Stage Exercise capacity: 7.0METs Max Blood Pressure: 128/80mmHg Blood Pressure response to exercise: normal resting BP - appropriate response Heart Rate response to exercise: appropriate Chest Pain: No, none Angina index: 0 Arrhythmia: Yes, occ PVCs ST Change: No, none Deviation: 0 mm INTERPRETATION Stress EKG Conclusion: Negative Stress test for Ischemia and for chest pain,Nuclear scan to follow.. Signed by Pascual Electronically Approved: 12/12/2018 09:26:13 EXAM: Myocardial Perfusion REST/STRESS Stress Test Type: Exercise Treadmill Imaging Protocol The imaging protocol used to acquire images was Rest Tc-99m/stress Tc-99m 1 day Rest Spect myocardial perfusion imaging was performed in supine position 50 minutes following the injection of 10.3 mCi of Tc-99 Myoview. At peak stress, the patient was injected intravenously with 30.2mCi of Tc-99 tetrofosmin after an exercise time of 5 minutes and 30 seconds. Gated Stress Spect was performed 65 minutes after intravenous Tc-99 Myoview injection. The images were gated to evaluate regional wall motion and calculate ventricular ejection fraction.Images were reconstructed using backfilter projection method in short horizontal and verticle long axis. Spect slices were generated. LV Perfusion The quality of the study is good. The left ventricle is normal in size. The right ventricle is unremarkable. The lung uptake is within normal limits. The distribution of tracer reveals normal uptake pattern throughout the LV myocardium on the stress study. The rest myocardial perfusion study shows no significant change. Wall Motion Wall motion study shows good contractility of the left ventricle. LVEF = 72%. Conclusion 1. Normal SPECT myocardial perfusion study. 2. Normal gated wall motion of the left ventricle.
--- NOTE | 2018-12-13 19:05 | CARD ---
APPROVED REPORT Date of service: 12/12/2018 EXAM: Two-dimensional and M-mode echocardiogram with Doppler and color Doppler. INDICATION Chest Pain 2D DIMENSIONS Left Atrium (2D)2.8 (1.6-4.0cm)IVSd1.3 (0.7-1.1cm) LVDd3.4 (3.9-5.9cm)PWd1.0 (0.7-1.1cm) LVDs2.1 (2.5-4.0cm)FS (%) 38.4 % LVEF (%)69.7 (>50%) M-Mode DIMENSIONS Aortic Root1.90 (2.2-3.7cm)Aortic Cusp Exc.1.20 (1.5-2.0cm) Aortic Valve AoV Peak Rdiogmiy472.0cm/Lamont Peak GR.5mmHg Mitral Valve MV E Mqqhjnpw15.5cm/sMV A Umalbcgz19.7cm/sE/A ratio0.9 TDI E/Lateral E'0.0E/Medial E'0.0 Tricuspid Valve TR Peak Rejkuxgl018jx/sTR Peak Gr.17mmHg LEFT VENTRICLE The left ventricle is normal size. There is normal left ventricular wall thickness. The left ventricular function is normal.EF-65% There is normal LV segmental wall motion. Transmitral Doppler flow pattern is Grade III-reversible restrictive diastolic dysfunction. No left ventricle thrombus noted on this study. There is no ventricular septal defect visualized. There is no left ventricular aneurysm. There is no mass noted in the left ventricle. RIGHT VENTRICLE The right ventricle is mildly dilated. There is normal right ventricular wall thickness. Systolic function is borderline reduced. ATRIA The left atrium size is normal. The right atrium size is normal. The interatrial septum is intact with no evidence for an atrial septal defect. AORTIC VALVE The aortic valve is thickened but opens well. No aortic regurgitation is present. There is no aortic valvular stenosis. There is no aortic valvular vegetation. MITRAL VALVE The mitral valve is thickened but opens well. Mitral annular calcification is mild. Mitral regurgitation is trace. There is no mitral valve stenosis. There is no evidence of mitral valve prolapse. TRICUSPID VALVE The tricuspid valve leaflets are thickened , but open well. There is trace tricuspid regurgitation.RVSP-17 mmof hg. There is no tricuspid valve stenosis. There is no tricuspid valve prolapse or vegetation. PULMONIC VALVE The pulmonary valve is normal in structure. There is no pulmonic valvular regurgitation. There is no pulmonic valvular stenosis. GREAT VESSELS The aortic root is normal in size. The ascending aorta is normal in size. The pulmonary artery is normal. The IVC is normal in size and collapses >50% with inspiration. PERICARDIAL EFFUSION There is no pleural effusion. There is no pericardial effusion. <Conclusion> The left ventricle is normal size. There is normal left ventricular wall thickness. The left ventricular function is normal.EF-65% Mitral regurgitation is trace. There is trace tricuspid regurgitation.RVSP-17 mmof hg. The IVC is normal in size and collapses >50% with inspiration. There is no pericardial effusion.
== END 2018-12-12 18:49 | disposition home or self-care (01) ==
LOC: ED 23:22 → ERH 12-11 01:37 → 2RNO 12-11 03:02
PROVIDERS: ADMIT Internal Medicine; ATTEND Internal Medicine
DX: R07.9 Chest pain, unspecified (principal); R31.9 Hematuria, unspecified; N20.0 Calculus of kidney; I10 Essential (primary) hypertension; M54.9 Dorsalgia, unspecified; K59.00 Constipation, unspecified
CPT/HCPCS: 36415; 71045; 71275; 74175; 76700; 78452; 80053; 80061; 81001; 82550; 83036; 83615; 83735; 83880; 84100; 84443; 84484; 85025; 85610; 85730; 87086; 88108; 93005; 93017; 93306; 96374; 99282; A9502; G0378; J0360; Q9967

== ENCOUNTER 2018-12-20 17:36 | Observation (INO) | payer OTHER ==
[2018-12-20 17:36] VITALS: BMI 34.9
[2018-12-20] MEDS ORDERED: Sodium Chloride 0.9% 500 ML IV STA (18:44)
--- NOTE | 2018-12-20 19:01 | ED PDOC ---
Arrival/HPI - General Chief Complaint: Back Pain Time Seen by Provider: 12/20/18 18:33 Historian: Patient - History of Present Illness Narrative History of Present Illness (Text): 12/20/18 18:33 Patient is a 58 year old female, with a past medical history of renal stones, who presents to the emergency department for acute onset left flank pain. Patient describes pain as a "shooting" pain to left side. Patient also notes intermittent dysuria. Patient is ambulatory in the ED. Patient denies fevers, chills, headache, dizziness, chest pain, shortness of breath, cough, abdominal pain, nausea, vomiting, diarrhea, hematuria, frequency, midline pain, focal weakness, paresthesias, or any other complaints. Symptom Onset: Sudden Symptom Course: Unchanged Activities at Onset: Light Context: Home Past Medical History - Provider Review Nursing Documentation Reviewed: Yes - Infectious Disease Hx of Infectious Diseases: None - Reproductive Menopause: Yes - Cardiac Hx Cardiac Disorders: Yes Hx Hypertension: Yes - Pulmonary Hx Respiratory Disorders: No - Neurological Hx Neurological Disorder: No - HEENT Hx HEENT Disorder: No - Renal Hx Renal Disorder: No - Endocrine/Metabolic Hx Endocrine Disorders: No Hx Hypothyroidism: Yes - Hematological/Oncological Hx Blood Disorders: No - Integumentary Hx Dermatological Disorder: No - Musculoskeletal/Rheumatological Hx Musculoskeletal Disorders: No Hx Falls: No - Gastrointestinal Hx Gastrointestinal Disorders: No - Genitourinary/Gynecological Hx Genitourinary Disorders: No - Psychiatric Hx Psychophysiologic Disorder: No Hx Substance Use: No - Anesthesia Hx Anesthesia: No Family/Social History - Physician Review Nursing Documentation Reviewed: Yes Family/Social History: Unknown Family HX Smoking Status: Never Smoked Hx Alcohol Use: No Hx Substance Use: No Allergies/Home Meds Allergies/Adverse Reactions: Allergies No Known Allergies Allergy (Verified 10/10/18 10:20) Home Medications: Home Meds Medication Instructions Recorded Confirmed Losartan/Hydrochlorothiazide 1 tab PO DAILY 06/20/17 12/11/18 [Losartan-Hctz 50-12.5 mg Tab] Metoprolol Tartrate [Lopressor] 50 mg PO BID 10/10/18 12/11/18 Review of Systems - Review of Systems Constitutional: absent: Fevers, Other Respiratory: absent: SOB Cardiovascular: absent: Chest Pain Gastrointestinal: absent: Abdominal Pain, Diarrhea, Nausea, Vomiting Genitourinary Female: Dysuria. absent: Frequency, Hematuria Musculoskeletal: Joint Swelling, Other (left flank pain). absent: Back Pain (no midline pain), Neck Pain (no midline pain) Neurological: absent: Headache, Dizziness, Focal Weakness, Other (paresthesias) Physical Exam Vital Signs Reviewed: Yes Vital Signs Temp Pulse Resp BP Pulse Ox 12/20/18 18:24 99.1 F 92 H 18 183/99 H 99 Temperature: Afebrile Blood Pressure: Hypertensive Pulse: Regular Respiratory Rate: Normal Appearance: Positive for: Well-Appearing, Non-Toxic, Comfortable Pain Distress: None Mental Status: Positive for: Alert and Oriented X 3 - Systems Exam Head: Present: Atraumatic, Normocephalic Pupils: Present: PERRL Extroacular Muscles: Present: EOMI Conjunctiva: Present: Normal Mouth: Present: Moist Mucous Membranes Neck: Present: Normal Range of Motion. No: MIDLINE TENDERNESS Respiratory/Chest: Present: Clear to Auscultation, Good Air Exchange. No: Respiratory Distress, Accessory Muscle Use, Wheezes, Rales, Rhonchi Cardiovascular: Present: Regular Rate and Rhythm, Normal S1, S2. No: Murmurs, Rub, Gallop Abdomen: Present: Normal Bowel Sounds. No: Tenderness, Distention, Peritoneal Signs, Rebound, Guarding Back: Present: CVA Tenderness (left). No: Midline Tenderness Upper Extremity: Present: Normal Inspection. No: Cyanosis, Edema Lower Extremity: Present: Normal Inspection. No: Edema Neurological: Present: GCS=15, CN II-XII Intact, Speech Normal Skin: Present: Warm, Dry, Normal Color. No: Rashes Psychiatric: Present: Alert, Oriented x 3, Normal Insight, Normal Concentration Medical Decision Making ED Course and Treatment: 12/20/18 18:33 Impression: Pt is a 58 year old female, with a past medical history of renal stones, who presents to the emergency department complaining of acute onset left flank pain. Plan: -- CT A/P -- Labs -- IV Fluids -- Toradol -- Urine Culture -- Urinalysis -- Reassess and disposition Prior Visits: Notes and results from previous visits were reviewed. Patient was last seen in the emergency department on Progress Notes: 12/20/18 20:08 UA positive. Antibiotics started. Signed out to Dr. Lamb to evaluate for infected stone. P:CT - RAD Interpretation Radiology Orders: 12/20/18 18:43 ABD & PELVIS W/O PO OR IV CONT [CT] Stat - Medication Orders Current Medication Orders: Sodium Chloride (Sodium Chloride 0.9%) 500 mls @ 999 mls/hr IV .Q31M STA Stop: 12/20/18 19:14 Discontinued Medications Ketorolac Tromethamine (Toradol) 30 mg IVP STAT STA Stop: 12/20/18 18:45 - Scribe Statement The provider has reviewed the documentation as recorded by the Scribe Golden Souza All medical record entries made by the Scribe were at my direction and personally dictated by me. I have reviewed the chart and agree that the record accurately reflects my personal performance of the history, physical exam, medical decision making, and the department course for this patient. I have also personally directed, reviewed, and agree with the discharge instructions and disposition. Disposition/Present on Arrival - Present on Arrival Any Indicators Present on Arrival: No History of DVT/PE: No History of Uncontrolled Diabetes: No Urinary Catheter: No History of Decub. Ulcer: No History Surgical Site Infection Following: None - Disposition Have Diagnosis and Disposition been Completed?: Yes Diagnosis: Flank pain, Hematuria Disposition Time: 20:08 Condition: FAIR Referrals: PCP,NO [Primary Care Provider] - Follow up with primary Forms: [facility] ([place])
[2018-12-20 19:09] LABS: BASO # 0.01 K/mm3 (0.0-2.0); BASO % 0.1 % (0.0-3.0); EOS # 0.1 (0.0-0.7); EOS % 0.8 % (1.5-5.0); HEMOGLOBIN 12.7 g/dL (12.0-16.0); LYMPH % 15.7 % (22.0-35.0); MEAN CELL VOLUME 88.6 fl (80.0-105.0); MEAN CORPUSCULAR HEMOGLOBIN 29.7 pg (25.0-35.0); MEAN CORPUSCULAR HGB CONC 33.5 g/dl (31.0-37.0); MEAN PLATELET VOLUME 10.2 fl (7.0-11.0); MONO # 0.6 (0.1-0.6); RBC 4.28 10^6/uL (3.5-6.1); WHITE BLOOD COUNT 12.7 10^3/uL (4.5-11.0)
[2018-12-20 19:23] LABS: ALB/GLOB RATIO 1.4 (1.1-1.8); ALBUMIN 4.2 g/dL (3.0-4.8); ALT/SGPT 37 U/L (7-56); AST/SGOT 22 U/L (14-36); BLOOD UREA NITROGEN 11 mg/dL (7-21); CALCIUM 9.7 mg/dL (8.4-10.5); GFR NON-AFRICAN AMERICAN > 60; LIPASE 54 U/L (23-300)
[2018-12-20 19:45] LABS: PH,URINE 6.5 (4.7-8.0); URINE BILIRUBIN MODERATE (NEGATIVE); URINE BLOOD LARGE (NEGATIVE); URINE GLUCOSE (UA) NEGATIVE (NEGATIVE); URINE LEUKOCYTE ESTERASE TRACE Leu/uL (NEGATIVE); URINE PROTEIN >=300 mg/dL (<30 mg/dL)
[2018-12-20 19:53] LABS: URINE APPEARANCE CLOUDY (CLEAR); URINE COLOR BROWN (YELLOW)
[2018-12-20 20:01] LABS: URINE BACTERIA MANY /hpf; URINE RBC TNTC /hpf (0-2)
[2018-12-20] MEDS ORDERED: cefTRIAXone 1 gm 1 GM/100 ML BAG IVPB STA (20:02)
--- NOTE | 2018-12-20 21:33 | ED PDOC ---
Physical Exam Vital Signs Temp Pulse Resp BP Pulse Ox 12/20/18 18:24 99.1 F 92 H 18 183/99 H 99 Medical Decision Making ED Course and Treatment: 12/20/18 21:30 Case endorsed to me by Dr. Nuno, pending CT scan, re-evaluation, and disposition. 12/20/18 21:43 CT Abdomen and Pelvis: LUNG BASES: The lung bases appear clear. No pleural effusions are seen. LIVER: Unremarkable. GALLBLADDER AND BILE DUCTS: The gallbladder appears within normal limits. No radioopaque gallstones are seen. No biliary ductal dilatation is evident. PANCREAS: Unremarkable. SPLEEN: Unremarkable. ADRENAL GLANDS: Unremarkable. KIDNEYS, URETERS, AND BLADDER: The kidneys appear within normal limits. A punctate non-obstructing calculus is seen in the posterior mid right renal pole. There is mild left hydronephrosis and continuous left hydroureter identified. A 3.2 mm mildly obstructing distal left ureteric calculus is noted just proximal to the left UVJ. The urinary bladder appeared normal in size and configuration. STOMACH AND BOWEL: Unremarkable appearance of the stomach and bowel. No evidence of bowel obstruction. No evidence suggesting enteritis or colitis. APPENDIX: No evidence of acute appendicitis on CT examination. PERITONEUM: No free fluid. No free air. LYMPH NODES: No lymphadenopathy is evident. REPRODUCTIVE: Unremarkable as visualized. VASCULATURE: No evidence of abdominal aortic aneurysm. BONES: No aggressive appearing osseous lesion. No acute osseous pathology evident. IMPRESSION: 1. A partially obstructing 3.2 mm distal left ureteric calculus is noted as described above. Mild associated left hydronephrosis and continuous left hydroureter present. 2. A punctate non-obstructing calculus is seen in the posterior mid right renal pole. Electronically signed on December 20, 2018 9:33:21 PM EDT by: Golden Easton M.D., M.B.A., Certified By [employer] Trained MRI and CT Specialist 12/20/18 22:[address] Rowley, who is aware and agrees with plan. Accepts pt in to his service. Pt [facility] go to [facility] observation for UTI and kidney stone. - Lab Interpretations Lab Results: Total Bilirubin 0.3 mg/dL (0.2-1.3) 12/20/18 19:00 AST 22 U/L (14-36) 12/20/18 19:00 ALT 37 U/L (7-56) 12/20/18 19:00 Alkaline Phosphatase 163 U/L (38-126) H 12/20/18 19:00 Total Protein 7.3 g/dL (5.8-8.3) 12/20/18 19: Albumin 4.2 g/dL (3.0-4.8) 12/20/18 19: Globulin 3.1 gm/dL 12/20/18: Albumin/Globulin Ratio 1.4 (1.1-1.8) 12/20/18 19: Lipase 54 U/L (23-300) 12/20/18 19: Urine Color Brown (YELLOW) 12/20/18: Urine Appearance Cloudy (CLEAR) 12/20/18: Urine pH 6.5 (4.7-8.0) 12/20/18:30 Ur Specific [place] >= 1.030 (1.005-1.035) 12/20/18: Urine Protein >=300 mg/dL (<30 mg/dL) H 12/20/18 19:30 Urine Glucose (UA) Negative mg/dL (NEGATIVE) 12/20/18: Urine Ketones Trace mg/dL (NEGATIVE) H 12/20/18: Urine Blood Large (NEGATIVE) H 12/20/18: Urine Nitrate Positive (NEGATIVE) H 12/20/18:30 Urine Bilirubin Moderate (NEGATIVE) H 12/20/18: Urine Urobilinogen 1.0 E.U./dL (<1 E.U./dL) H 12/20/18:30 Ur Leukocyte Esterase Trace Nick/uL (NEGATIVE) H 12/20/18:30 Urine RBC Tntc /hpf (0-2) H 12/20/18:30 Urine WBC 5 - 10 /hpf (0-6) H 12/20/18:30 Ur Epithelial Cells 6 - 8 /hpf (0-5) H 12/20/18 19:30 Urine Bacteria Many /hpf (NONE) 12/20/18 19:30 - RAD Interpretation Radiology Orders: 12/20/18 18:43 ABD & PELVIS W/O PO OR IV CONT [CT] Stat - Medication Orders Current Medication Orders: Discontinued Medications Sodium Chloride (Sodium Chloride 0.9%) 500 mls @ 999 mls/hr IV .Q31M STA Stop: 12/20/18 19:14 Last Admin: 12/20/18 19:41 Dose: 999 mls/hr eMAR Start Stop Document 12/20/18 19:41 SS (Rec: 12/20/18 19:42 SS [id number]) Intravenous Solution Start Date 12/20/18 Start Time 19:42 End Date 12/20/18 End time 20:12 Total Infusion Time 30 Ceftriaxone Sodium (Rocephin 1 Gram Ivpb) 1 gm in 100 mls @ 100 mls/hr IVPB STAT STA; Protocol Stop: 12/20/18 21:01 Ketorolac Tromethamine (Toradol) 30 mg IVP STAT STA Stop: 12/20/18 18:45 Last Admin: 12/20/18 19:42 Dose: 30 mg MAR Pain Assessment Document 12/20/18 19:42 SS (Rec: 12/20/18 19:43 SS [id number]) Pain Reassessment Is this a pain reassessment? No Sleep Is patient sleeping during reassessment? No Presence of Pain Presence of Pain Yes IVP Administration Document 12/20/18 19:42 SS (Rec: 12/20/18 19:43 SS [id number]) Charges for Administration # of IVP Administrations 1 Disposition/Present on Arrival - Present on Arrival Any Indicators Present on Arrival: No History of DVT/PE: No History of Uncontrolled Diabetes: No Urinary Catheter: No History of Decub. Ulcer: No History Surgical Site Infection Following: None - Disposition Have Diagnosis and Disposition been Completed?: Yes Diagnosis: Flank pain, Hematuria Disposition: HOSPITALIZED Disposition Time: 22:40 Patient Problems: Current Active Problems Problem Status Onset Flank pain Acute Hematuria Acute Condition: FAIR
[2018-12-21] MEDS ORDERED: Pneumococcal 23-Valent Vaccine IM ONE (01:37)
[2018-12-21] MEDS ORDERED: Sodium Chloride 0.9% 100 ML IV SCH (08:30)
--- NOTE | 2018-12-21 09:01 | CT ---
Date of service: 12/20/2018 PROCEDURE: CT Abdomen and Pelvis without intravenous contrast HISTORY: L flank pain, hx of renal stones COMPARISON: None. TECHNIQUE: Without contrast.. Contrast dose: Radiation dose: Total exam DLP = 758.64 mGy-cm. This CT exam was performed using one or more of the following dose reduction techniques: Automated exposure control, adjustment of the mA and/or kV according to patient size, and/or use of iterative reconstruction technique. FINDINGS: LOWER THORAX: Unremarkable. LIVER: Unremarkable. No gross lesion or ductal dilatation. GALLBLADDER AND BILE DUCTS: Unremarkable. PANCREAS: Unremarkable. No gross lesion or ductal dilatation. SPLEEN: Unremarkable. ADRENALS: Unremarkable. No mass. KIDNEYS AND URETERS: There is a 3 mm stone in the left UVJ with mild hydronephrosis and hydroureter. There is a 3 mm nonobstructing stone in the right kidney. VASCULATURE: Unremarkable. No aortic aneurysm. No aortic atherosclerotic calcification or mural plaque present. BOWEL: Unremarkable. No obstruction. No gross mural thickening. APPENDIX: Unremarkable. Normal appendix. PERITONEUM: Unremarkable. No free fluid. No free air. LYMPH NODES: Unremarkable. No enlarged lymph nodes. BLADDER: Unremarkable. REPRODUCTIVE: Unremarkable. BONES: No acute fracture. OTHER FINDINGS: None. IMPRESSION: There is a 3 mm stone in the left UVJ with mild hydronephrosis and hydroureter. There is a 3 mm nonobstructing stone in the right kidney.
[2018-12-21] MEDS: cefTRIAXone 1 gm 1 GM/100 ML BAG IVPB SCH (10:05)
[2018-12-21] MEDS: Levothyroxine 50 MCG TAB PO SCH (10:06)
--- NOTE | 2018-12-21 13:18 | HP ---
DATE OF EXAM: 12/21/2018 HISTORY OF PRESENT ILLNESS: A 58-year-old black female with history of nephrolithiasis many years ago in [place], history of CAD and hypertension. The patient recently was discharged from [facility] after being admitted with back and chest pain, she was seen by Dr. Garner. She had a stress test, which was negative. She also had a CT of the abdomen and chest, which was normal. No evidence of aortic dissection. She eventually had found to have some hematuria and was discharged home. As an outpatient, she had a urine culture and a cytology done, which was negative; however the patient returned to the emergency room on 12/20 complaining of some left flank pain and discolored urine with low-grade fever, chills. No nausea or vomiting that started approximately 24 hours prior to admission. REVIEW OF SYSTEMS: CONSTITUTIONAL: Positive only for back pain and change in the color of her urine, constitutional symptoms of fever and chills. GASTROINTESTINAL: Negative for nausea, vomiting or diarrhea. RESPIRATORY: Negative for cough, sputum production or shortness of breath. CARDIAC: Negative for chest pain, palpitations, lightheadedness or dizziness. NEUROLOGIC: Negative for syncope, headache, paresthesias or paralysis. PHYSICAL EXAMINATION: GENERAL: Shows a well developed, but slightly obese black female, in no apparent distress. HEENT: Essentially within normal limits. HEART: Regular sinus rhythm. CHEST: Clear to auscultation and percussion. There is no CVA tenderness. There is no abdominal tenderness. ABDOMEN: Soft. Bowel sounds normoactive. No hepatosplenomegaly. EXTREMITIES: Without cyanosis, clubbing or edema. NEUROLOGIC: Sensation is grossly intact. LABORATORY DATA: Reveals pyuria, bacteriuria, and hematuria. CT shows an obstructing stone in the left ureter consistent with ureterolithiasis. PLAN: consult, hydration, IV antibiotics, Flomax and straining of urine and possibly stent. Dariusz Rowley MD
--- NOTE | 2018-12-21 18:09 | RAD ---
Date of service: 12/21/2018 HISTORY: right kidney stone, left UVJ hydronephrosis COMPARISON: December 20, 2018. CT abdomen and pelvis. TECHNIQUE: 1 view obtained. FINDINGS: BOWEL: Normal. No obstruction. No free air. BONES: Normal. OTHER FINDINGS: None. IMPRESSION: No significant or acute findings to account for/ related to the clinical presentation.
--- NOTE | 2018-12-22 09:29 | PN ---
DATE: 12/22/2018 SUBJECTIVE: A 58-year-old black female admitted to the hospital with left flank pain, hydronephrosis, now secondary to nephrolithiasis and pyelonephritis. The patient is on IV antibiotics. She is afebrile. Vital signs are stable. Her pain has shifted from the left flank to the left suprapubic area. At this point, she is straining. Urine has not revealed any stone at this point. Ultrasound of the abdomen is negative. She is n.p.o. for a cysto, possible stent or stone retrieval by Dr. Saldivar this morning. Vital signs are stable. Blood pressure is 157/80. She is afebrile. Her white count is down to 12,700. Her physical examination is unchanged. There is no CVA tenderness. Her chest is clear to auscultation and percussion. Heart examination reveals sinus rhythm. Abdomen is soft. There is some slight pressure on palpation of the suprapubic region. Extremities without cyanosis, clubbing, or edema. PLAN: Plan is to continue to increase her blood pressure control. N.p.o. for cysto this morning. Possible discharge home. P.o. antibiotics after her cysto and possible stent placement. Dariusz Rowley MD
[2018-12-22] MEDS: cefTRIAXone 1 gm 1 GM/100 ML BAG IVPB SCH (10:28)
[2018-12-22] MEDS: Levothyroxine 50 MCG TAB PO SCH (10:28)
--- NOTE | 2018-12-22 17:14 | PCM.URO ---
Urology Progress Note - Objective Lab Studies: Reviewed (see previously dictated note and today to be dictated plans: ct scan , strain urine , resume diet , no procedures for now) Intake & Output: Intake & Output 12/21/18 12/22/18 12/22/18 18:59 06:59 18:59 Intake Total 120 1620 Output Total 100 2150 Balance 20 -530 Intake: Oral 120 1620 Output: Urine 100 2150 Urine, Voided 100 2150 Other: # Bowel Movements 0 0 Vital Signs: Vital Signs - 24 hr 12/22/18 06:00 Temperature 97.9 F Pulse Rate 74 Respiratory 20 Rate Blood Pressure 157/80 H O2 Sat by Pulse 99 Oximetry
--- NOTE | 2018-12-22 18:08 | CT ---
Date of service: 12/22/2018 PROCEDURE: CT Abdomen and Pelvis without intravenous contrast HISTORY: follow up for stone, please compare with 12/21 COMPARISON: 12/20/2018. CT abdomen and pelvis. Six TECHNIQUE: Unenhanced. Neither IV nor oral contrast administered Radiation dose: Total exam DLP = inf_radiation_dlp mGy-cm. This CT exam was performed using one or more of the following dose reduction techniques: Automated exposure control, adjustment of the mA and/or kV according to patient size, and/or use of iterative reconstruction technique. FINDINGS: LOWER THORAX: Unremarkable. LIVER: Unremarkable. No gross lesion or ductal dilatation. GALLBLADDER AND BILE DUCTS: Unremarkable. PANCREAS: Unremarkable. No gross lesion or ductal dilatation. SPLEEN: Unremarkable. ADRENALS: Unremarkable. No mass. KIDNEYS AND URETERS: Unremarkable. No hydronephrosis. No solid mass. Resolution of left hydroureteronephrosis related to 3 mm calculus identified at the ureterovesical junction on 12/20/2018. Incidental finding(s): Malrotated right kidney. 2 mm midpole nonobstructing calculus. VASCULATURE: Unremarkable. No aortic aneurysm. No atherosclerotic calcification or mural plaque present. BOWEL: Unremarkable. No obstruction. No gross mural thickening. APPENDIX: A normal appendix is visualized in it's entirety. PERITONEUM: Unremarkable. No free fluid. No free air. LYMPH NODES: Unremarkable. No enlarged lymph nodes. BLADDER: Unremarkable. REPRODUCTIVE: Unremarkable. BONES: No acute fracture. OTHER FINDINGS: None. IMPRESSION: Resolution of left hydroureteronephrosis related to 3 mm calculus previously seen at the left ureterovesical junction. No urinary bladder calculi detected. Additional benign and/or incidental findings described above.
--- NOTE | 2018-12-22 20:00 | CON ---
DATE: 12/22/2018 UROLOGY CONSULTATION REASON FOR CONSULTATION: "UTI." HISTORY OF PRESENT ILLNESS: History is from the patient and from the chart, this lady who is here under the care of Dr. Rowley. She had a history of stone disease. She is originally from [place]. She moved here with her daughter. From the Urology standpoint, she was found to have a 3 mm distal ureteral stone. She came here with abdominal pain, flank pain, and groin pain. She is currently resting comfortably. She was actually in a wheelchair outside the x-ray area. PAST MEDICAL AND SURGICAL HISTORY: All listed on the chart. PHYSICAL EXAMINATION: Limited, but no obvious distress. She is sitting comfortably right now, but she reports that intermittently she is getting intermittent slight pain. DIAGNOSIS AND LABS: See the chart. CT scan, see the chart. DIAGNOSES: Urolithiasis, hematuria, hydronephrosis, . ASSESSMENT AND PLAN: 1. Now we are going to do a tboscy-uvbsve-rjuaydf scan. 2. We are going to strain the urine. 3. We are going to provide hydration. 4. We are going to consider cystostomy stent insertion, hospital cystoscopy, ureteroscopy, laser lithotripsy of stone basketing, possible observation alone. I have discussed with the patient in great detail. We will see how she does overnight and I will make further recommendations and plan within in the morning. Thank you for the Urology consult. Gian Saldivar MD
[2018-12-23 08:39] VITALS: BP 154/89; PULSE 72; RESP 18; TEMP 97.9; O2SAT 98
[2018-12-23] MEDS: cefTRIAXone 1 gm 1 GM/100 ML BAG IVPB SCH (10:20)
[2018-12-23] MEDS: Levothyroxine 50 MCG TAB PO SCH (10:20)
--- NOTE | 2018-12-23 14:46 | PN ---
DATE: 12/23/2018 SUBJECTIVE: The patient has no complaints of any chest pain. No shortness of breath or headaches. PHYSICAL EXAMINATION: VITAL SIGNS: Temperature is 97.9, pulse of 72, blood pressure 152/89, respirations 18. GENERAL: The patient is lying in bed, flat, comfortable. HEENT: No oral lesion. Anicteric sclerae. Moist mucosa. NECK: No JVD, adenopathy, or thyromegaly. CARDIOVASCULAR: S1 and S2, regular. No murmurs, rubs, or gallops. LUNGS: Clear to auscultation bilaterally. No wheeze, rales, or rhonchi. ABDOMEN: Bowel sounds are positive, soft, nontender and nondistended. EXTREMITIES: no cyanosis, clubbing or edema. LABS: White count of 12.7, hemoglobin 12.7, creatinine is 0.9. In the chest, the patient has no erythema. ASSESSMENT: 1. Nephrolithiasis. 2. Urinary tract infection. 3. Hypertension. 4. Hypothyroidism. PLAN: The patient is going to be discharged home today. I gave her Vantin. The patient was seen by Dr. Murdock and cleared for discharge. I did review the urine cultures and blood cultures. This is most likely contaminant. The patient is on Flomax for the kidney stones. She is on losartan for her hypertension. The patient is Synthroid for hypothyroidism. Moe Lal MD
--- NOTE | 2018-12-24 04:28 | CON ---
DATE: 12/23/2018 LOCATION: The patient is seen earlier this morning in room 378, bed 2. CHIEF COMPLAINT: Positive blood cultures for Gram-positive castillo, Infectious Disease consultation was requested x1 day duration. HISTORY OF PRESENT ILLNESS: This is a 58-year-old female with past medical history significant for nephrolithiasis, coronary artery disease and hypertension. The patient was recently hospitalized and the patient was found to have hematuria at home and cytology was done. The patient had pain which has resolved. No fever or chills. No nausea or vomiting. Had nephrolithiasis and questionable urinary tract infection, hypertension and hypothyroidism. REVIEW OF SYSTEMS: Reveals the patient's 12-point review of system was performed. PAST MEDICAL HISTORY: Significant for nephrolithiasis, coronary artery disease and hypertension. The patient does have hypothyroidism. PAST SURGICAL HISTORY: Noncontributory. ALLERGIES: THE PATIENT HAS NO KNOWN ALLERGIES. MEDICATIONS: Reviewed. PHYSICAL EXAMINATION: GENERAL: The patient is seen earlier today, in no acute distress. and she wants to be discharged. VITAL SIGNS: Temperature was 98, blood pressure was 154/89, respiratory rate of 18, and heart rate of 63. HEENT: Unremarkable. NECK: Supple. LUNGS: Decreased breath sounds. HEART: Normal S1 and S2. ABDOMEN: Soft. LABORATORY EXAMINATION: Reveals the patient to have white count of 12,700. BUN 11, and creatinine 1.2. Urinalysis is noted. Microbiology reveals urine cultures have coag negative Staph, pansensitive. There is Gram-positive rods in 1 blood identified as diphtheroids and Gram-positive bacillus diphtheroid. IMAGING: Reviewed. The patient had a CAT scan of the abdomen and pelvis is noted. ASSESSMENT AND PLAN: This is a 58-year-old female with Gram-positive castillo bacteremia, most consistent with contamination, not requiring treatment. She states she has no intravascular disease. She had no fever or chills. I recommended repeat blood cultures this morning and should have a human immunodeficiency virus test because of matter of routine because of her age and no antibiotics treatment at this time is recommended. Tristan Murdock MD
--- NOTE | 2018-12-25 17:16 | DS ---
HISTORY OF PRESENT ILLNESS: A 58-year-old black female admitted to the hospital on 12/20/2018 and discharged on 12/23/2018. The patient was admitted to the hospital with left flank pain, hematuria, and was found to have a nephrolithiasis, UPJ junction stone. The patient was treated with Flomax, IV hydration, IV antibiotics because of infected urine. The patient was seen in consultation with Dr. Saldivar. The patient had decrease in pain and a change in the course of the pain favoring the anterior abdomen as oppose to the flank. The patient did have a 3-mm stone and was felt to be improving and most likely would be able to pass the stone. The patient was prepped for a cystoscopy and stent; however, Dr. Gokul Saldivar will decide the patient did not need a stent. The patient was able to be discharged home in improved condition to follow up with Dr. Saldivar as an outpatient, to continue Flomax and p.o. antibiotics and to follow up as an outpatient. FINAL DISCHARGE DIAGNOSES: Nephrolithiasis, ureterolithiasis, hypertension, hematuria, and urinary tract infection. Dariusz Rowley MD
== END 2018-12-23 13:39 | disposition home or self-care (01) ==
LOC: ED 17:36 → ERH 22:39 → 3RSO 12-21 01:05
PROVIDERS: ADMIT Internal Medicine; ATTEND Internal Medicine
DX: N13.2 Hydronephrosis with renal and ureteral calculous obstruction (principal); R31.9 Hematuria, unspecified; N39.0 Urinary tract infection, site not specified; B95.7 Other staphylococcus as the cause of diseases classified elsewhere; I10 Essential (primary) hypertension; E03.9 Hypothyroidism, unspecified; I25.10 Atherosclerotic heart disease of native coronary artery without angina pectoris; Z87.442 Personal history of urinary calculi
CPT/HCPCS: 36415; 74019; 74176; 80053; 81001; 83690; 85025; 87040; 87086; 87181; 87205; 96365; 96366; 96375; 96376; 99284; G0378; J0696; J1885; J7040